=== PATIENT | female | born 1950 | race Caucasian/White ===

== ENCOUNTER 2021-01-01 12:45 | Outpatient (REF) | payer MEDICARE, SELFPAY ==
[2021-01-01 14:06] LABS: MANUAL DIFF FLAG NO
[2021-01-01 14:11] LABS: Glucose Urine UA NEG (NEG); Leukocyte Esterase Urine NEG (NEG); Nitrite Urine NEG (NEG); PH 6.5 (5.0-8.0); Urine Blood NEG (NEG); Urine Ketones NEG (NEG); Urine Protein NEG (NEG-TRACE)
[2021-01-01 14:14] LABS: Appearance Urine CLEAR; Color Urine YELLOW
[2021-01-01 14:15] LABS: Basophils Percent Auto 0.8 % (0-2); Eosinophils Absolute Auto 0.1 X10*3/uL (0.0-0.4); Eosinophils Percent Auto 2.5 % (0-4); Hematocrit 40.6 % (37-47); Hemoglobin 12.9 g/dl (12.0-16.0); Lymphocytes Absolute Auto 1.8 X10*3/uL (1.2-4.9); Lymphocytes Percent Auto 35.9 % (20-40); Mean Corpuscular HGB Conc 31.8 g/dl (31.0-35.0); Mean Corpuscular Hemoglobin 30.4 pg (27.0-33.0); Mean Corpuscular Volume 95.5 fL (80-98); Mean Platelet Volume 9.9 fL (9.4-12.3); Monocytes Absolute Auto 0.3 X10*3/uL (0.1-1.2); Monocytes Percent Auto 5.3 % (2-11); Neutrophils Absolute Auto 2.8 X10*3/uL (2.0-8.3); Neutrophils Percent Auto 55.5 % (45-73); Platelet Count 221 X10*3/uL (160-400); Red Blood Count 4.25 X10*6/uL (4.20-5.50); Red Cell Distribution Width 14.3 % (11.0-16.0); White Blood Count 5.1 X10*3/uL (4.8-10.8)
[2021-01-01 14:54] LABS: Alanine Aminotransferase 11 U/L (0-31); Albumin Level 4.1 g/dL (3.5-5.0); Alkaline Phosphatase 96 U/L (39-117); Anion Gap 12 (12-20); Aspartate Amino Transferase 22 U/L (5-31); Bilirubin Total 0.3 mg/dL (0.0-1.0); Blood Urea Nitrogen 16 mg/dL (9-16); Calcium 8.6 mg/dL (8.4-10.2); Carbon Dioxide 31 mmol/L (22-29); Chloride 99 mmol/L (96-108); Cholesterol 172 mg/dL; Estimated Glomerular Filt Rate > 60; Glucose Fasting 87 mg/dL (60-99); HDL Cholesterol 76 mg/dL; LDL Cholesterol Calculated 75 mg/dl; Potassium 4.6 mmol/L (3.3-5.1); Sodium 137 mmol/L (135-145); Total Protein 6.9 g/dL (6.5-8.0); Triglycerides 107 mg/dL
[2021-01-01 14:55] LABS: Creatinine Urine 37.43 mg/dL; Microalbumin Urine < 5.0 mg/L
[2021-01-01 16:28] LABS: Estimated Average Glucose 105 mg/dL; Hemoglobin A1c % 5.3 %
== END 2021-01-01 12:46 | disposition home or self-care (01) ==
LOC: HO.HMGCLDS 12:45
PROVIDERS: PCP Internal Medicine; Visit Provider Internal Medicine
DX: R73.03 Prediabetes (principal); I10 Essential (primary) hypertension; C34.90 Malignant neoplasm of unspecified part of unspecified bronchus or lung
CPT/HCPCS: 36415; 80053; 80061; 81003; 82043; 83036; 85025

== ENCOUNTER 2023-06-30 11:34 | Outpatient (REF) | payer MEDICARE, SELFPAY ==
[2023-06-30 11:37] LABS: MANUAL DIFF FLAG NO
[2023-06-30 11:54] LABS: Basophils Absolute Auto 0.1 X10*3/uL (0.0-0.2); Basophils Percent Auto 0.9 % (0-2); Eosinophils Absolute Auto 0.2 X10*3/uL (0.0-0.4); Eosinophils Percent Auto 3.5 % (0-4); Hematocrit 41.5 % (37.0-47.0); Hemoglobin 12.9 g/dl (12.0-16.0); Imm Gran Abs Auto 0.01 X10*3/uL (0.00-0.03); Imm Gran Pct Auto 0.2 % (0.0-0.4); Lymphocytes Absolute Auto 2.4 X10*3/uL (1.2-4.9); Mean Corpuscular HGB Conc 31.1 g/dl (31.0-35.0); Mean Corpuscular Hemoglobin 30.4 pg (27.0-33.0); Mean Corpuscular Volume 97.9 fL (80.0-98.0); Mean Platelet Volume 9.7 fL (9.4-12.3); Monocytes Absolute Auto 0.4 X10*3/uL (0.1-1.2); Neutrophils Absolute Auto 2.3 x10*3/uL (2.0-8.3); Neutrophils Percent Auto 43.4 % (45-73); Platelet Count 234 X10*3/uL (160-400); Red Blood Count 4.24 X10*6/uL (4.20-5.50); Red Cell Distribution Width 14.5 % (11.0-16.0); White Blood Count 5.4 X10*3/uL (4.8-10.8)
[2023-06-30 11:58] LABS: Appearance Urine Clear; Color Urine Yellow; Glucose Urine UA Negative (Negative); Leukocyte Esterase Urine Negative (Negative); Nitrite Urine Negative (Negative); PH 5.5 (5.0-9.0); Specific Gravity - Urine 1.015 (1.005-1.025); Urine Blood Negative (Negative); Urine Ketones Negative (Negative); Urine Protein Negative (Neg-Trace)
[2023-06-30 12:03] LABS: Bacteria Urine 1+ (None Seen); Hyaline Casts Urine 0-2 /LPF (0-2); RBC Urine 0-2 /HPF (0-2); WBC Urine 0-5 /HPF (0-5)
[2023-06-30 13:40] LABS: Estimated Average Glucose 100 mg/dL; Hemoglobin A1c % 5.1 %
[2023-06-30 13:50] LABS: Creatinine Urine 48.14 mg/dL; Microalbum/Creatinine Ratio Ur 10.3 ug/mg cr
[2023-06-30 15:07] LABS: Alanine Aminotransferase 13 U/L (0-31); Albumin Level 4.1 g/dL (3.5-5.0); Alkaline Phosphatase 88 U/L (39-117); Anion Gap 16 (12-20); Aspartate Amino Transferase 22 U/L (5-31); Bilirubin Total 0.4 mg/dL (0.0-1.0); Blood Urea Nitrogen 18 mg/dL (9-16); Calcium 9.5 mg/dL (8.4-10.2); Carbon Dioxide 25 mmol/L (22-29); Chloride 104 mmol/L (96-108); Cholesterol 175 mg/dL; Estimated Glomerular Filt Rate > 60; Glucose Fasting 100 mg/dL (60-99); HDL Cholesterol 81 mg/dL; LDL Cholesterol Calculated 69 mg/dl; Potassium 4.4 mmol/L (3.3-5.1); Sodium 141 mmol/L (135-145); Total Protein 6.9 g/dL (6.5-8.0); Triglycerides 126 mg/dL
== END 2023-06-30 11:35 | disposition home or self-care (01) ==
LOC: HO.LNP 11:34
PROVIDERS: Visit Provider Internal Medicine
DX: I10 Essential (primary) hypertension (principal); R73.09 Other abnormal glucose
CPT/HCPCS: 80053; 80061; 81001; 82043; 83036; 85025

== ENCOUNTER 2023-10-23 13:17 | Outpatient (REF) | payer MEDICARE, SELFPAY ==
[2023-10-23 16:12] LABS: MANUAL DIFF FLAG NO
[2023-10-23 16:25] LABS: Basophils Percent Auto 0.7 % (0-2); Eosinophils Absolute Auto 0.1 X10*3/uL (0.0-0.4); Eosinophils Percent Auto 1.5 % (0-4); Hemoglobin 13.1 g/dl (12.0-16.0); Imm Gran Abs Auto 0.02 X10*3/uL (0.00-0.03); Imm Gran Pct Auto 0.4 % (0.0-0.4); Lymphocytes Absolute Auto 1.7 X10*3/uL (1.2-4.9); Lymphocytes Percent Auto 30.1 % (20-40); Mean Corpuscular HGB Conc 31.2 g/dl (31.0-35.0); Mean Corpuscular Hemoglobin 30.3 pg (27.0-33.0); Mean Platelet Volume 9.2 fL (9.4-12.3); Monocytes Absolute Auto 0.3 X10*3/uL (0.1-1.2); Neutrophils Absolute Auto 3.4 x10*3/uL (2.0-8.3); Neutrophils Percent Auto 61.3 % (45-73); Platelet Count 274 X10*3/uL (160-400); Red Blood Count 4.33 X10*6/uL (4.20-5.50); Red Cell Distribution Width 14.6 % (11.0-16.0); White Blood Count 5.5 X10*3/uL (4.8-10.8)
== END 2023-10-23 13:18 | disposition home or self-care (01) ==
LOC: HO.HMGCLDS 13:17
PROVIDERS: PCP Internal Medicine; Visit Provider Internal Medicine
DX: D72.820 Lymphocytosis (symptomatic) (principal)
CPT/HCPCS: 36415; 85025

== ENCOUNTER 2023-10-31 12:48 | Observation (INO) | payer OTHER, MEDICARE, SELFPAY ==
--- NOTE | ~2023-10-31 | CT_ITS ---
EXAMINATION: CT HEAD WITHOUT CONTRAST CLINICAL INFORMATION: COMPARISON: None available. TECHNIQUE: Contiguous axial imaging was performed from the skull base to vertex without intravenous administration of contrast. This CT examination was performed using dose optimization techniques as appropriate, variously including the following: *Automated exposure control *Adjustment of mA and/or kV according to patient size (this includes techniques or standardized protocols for targeted exams where dose is matched to indication/reason for exam; i.e. extremities or head) *Use of iterative reconstruction technique DLP: 605 mGy-cm FINDINGS: Allowing for differences in positioning, the previously identified small right parafalcine subdural hematoma measuring up to 0.3 cm in depth appears grossly unchanged. Previously seen, trace subarachnoid hemorrhagic products along the parasagittal aspect of the right frontal lobe appear grossly similar to possibly slightly improved. No intraparenchymal hemorrhage, large infarction, or mass lesion is seen. The ventricles appear unremarkable in size and configuration. No demonstrated into parenchyma hemorrhagic products. No evidence of edematous territorial infarction. Richard-white matter differentiation is preserved. A few foci of hypoattenuation in the periventricular and deep white matter are consistent with mild microangiopathy. The ventricles are normal in morphology and size. No evidence for obstructive hydrocephalus. No abnormal mass effect or midline shift. Small laceration and subgaleal hematoma along the left posterior skull, measuring up to 0.6 cm in depth appears similar. No associated acute osseous finding. Mild mucosal thickening of the paranasal sinuses. The mastoid air cells and middle ear cavities are clear. Bilateral lens extractions. CT/CT head/brain wo IV con IMPRESSION: Allowing for differences in positioning, the small right parafalcine subdural hematoma measuring up to 0.3 cm in depth identified on CT scan from one day prior appears grossly unchanged. Previously seen, trace subarachnoid hemorrhagic products along the parasagittal aspect of the right frontal lobe appear grossly similar to possibly slightly improved.
--- NOTE | ~2023-10-31 | XR_ITS ---
EXAMINATION: XR SHOULDER, LEFT CLINICAL INFORMATION: Status post fall COMPARISON: January 02, 2020 TECHNIQUE: Three views of the left shoulder. FINDINGS: Patient is status post previous left lung surgery. There has been progression in severe degenerative joint disease of the left shoulder. There is loss of the glenohumeral joint space with marginal sclerosis and spurring. There is some flattening of the humeral head with subchondral cyst formation. There is capsular calcification is seen. No definite acute fracture or dislocation is seen. There is some superior migration of the humeral head suggestive of rotator cuff disease. No widening of the coracoclavicular space is seen. XR/XR shoulder LT min 2V IMPRESSION: Progression in severe degenerative change of the left shoulder without definite acute fracture appreciated.
--- NOTE | ~2023-10-31 | CT_ITS ---
EXAMINATION: CT HEAD WITHOUT CONTRAST CLINICAL INFORMATION: Fall. Head strike. COMPARISON: None available. TECHNIQUE: Contiguous axial imaging was performed from the skull base to vertex without intravenous administration of contrast. This CT examination was performed using dose optimization techniques as appropriate, variously including the following: *Automated exposure control. *Adjustment of mA and/or kV according to patient size (this includes techniques or standardized protocols for targeted exams where dose is matched to indication/reason for exam; i.e. extremities or head). *Use of iterative reconstruction technique. DLP: 675 mGy-cm FINDINGS: There is a small right parafalcine subdural hematoma measuring up to 0.3 cm in depth. There is also trace subarachnoid hemorrhagic products along the parasagittal aspect of the right frontal lobe. No demonstrated into parenchyma hemorrhagic products. No evidence of edematous territorial infarction. Richard-white matter differentiation is preserved. A few foci of hypoattenuation in the periventricular and deep white matter are consistent with mild microangiopathy. The ventricles are normal in morphology and size. No evidence for obstructive hydrocephalus. No abnormal mass effect or midline shift. Small laceration and subgaleal hematoma along the posterior skull, measuring up to 0.6 cm in depth. No associated acute osseous abnormalities. Mild mucosal thickening of the paranasal sinuses. The mastoid air cells and middle ear cavities are clear. Bilateral lens extractions. CT/CT head/brain wo IV con IMPRESSION: 1. Small right parafalcine subdural hematoma. Trace subarachnoid hemorrhagic products along the parasagittal aspect of the right frontal lobe. 2. Small posterior scalp laceration and subgaleal hematoma. No associated osseous abnormalities. This critical result was discussed with Dr. Hall at 15:54 on 10/31/2023 and it was ascertained that the content and urgency of the report was understood at the time of direct communication.
--- NOTE | ~2023-10-31 | CT_ITS ---
EXAMINATION: CT CERVICAL SPINE WITHOUT CONTRAST CLINICAL INFORMATION: Neck pain, trauma. Fall, head strike. COMPARISON: None available. TECHNIQUE: Multiple helical unenhanced images were acquired through the cervical spine. Multiplanar computer reformatted images were acquired from the dataset in the sagittal and coronal plane. This CT examination was performed using dose optimization techniques as appropriate, variously including the following: *Automated exposure control *Adjustment of mA and/or kV according to patient size (this includes techniques or standardized protocols for targeted exams where dose is matched to indication/reason for exam; i.e. extremities or head) *Use of iterative reconstruction technique DLP: 276 mGy-cm FINDINGS: CT examination of the cervical spine shows no prevertebral soft tissue swelling. Vertebral body height and alignment are maintained. No acute fracture or subluxation is evident. The odontoid process, cervicothoracic and cervical medullary junctions are normal. There are no bone lesions. No cervical mass or adenopathy is evident. A small bleb is evident in the right apex. Multilevel degenerative changes are evident in the cervical spine, including advanced disc space narrowing at C3-4 and C4-5. There are 4 mm of degenerative retrolisthesis at C4-5. CT/CT cervical spine wo IV con IMPRESSION: 1. No acute cervical spine fracture or subluxation. 2. Advanced C3-4 and C4-5 degenerative disc disease. Fleischner guidelines were followed.
[2023-10-31 12:58] VITALS: BP 143/75; BP 150/78; PULSE 77; PULSE 86; RESP 16; TEMP 37.1; O2SAT 96; O2SAT 98; BMI 23.8
[2023-10-31 13:02] VITALS: BP 150/78; PULSE 79; RESP 16; TEMP 37.1
--- NOTE | 2023-10-31 13:27 | ED_ITS ---
HPI - Fall General Chief Complaint: Fall Stated Complaint: TRIP/FALL, HEAD LAC,+CCOLLAR,-LOC PER EMS Time Seen by Provider: 10/31/23 13:17 Source: patient Mode of arrival: EMS Limitations: no limitations History of Present Illness HPI Narrative: Patient is 73 years old not on any blood thinner was at work tripped and fell backwards hitting the wall and left parietal area no loss of consciousness no hip pain no other injuries patient not on any blood thinner came with laceration to the left side of the scalp Related Data Home Medications Medication Instructions Recorded Confirmed amlodipine 5 mg tablet 5 mg PO DAILY 10/31/23 10/31/23 azithromycin 250 mg tablet 250 mg PO DAILY 10/31/23 10/31/23 gabapentin 400 mg capsule 400 mg PO TID 10/31/23 10/31/23 omeprazole 20 mg capsule,delayed 20 mg PO BID@0630,1630 10/31/23 10/31/23 release paroxetine HCl 40 mg tablet 40 mg PO DAILY 10/31/23 10/31/23 ropinirole 1 mg tablet 1 mg PO BEDTIME 10/31/23 10/31/23 Allergies Allergy/AdvReac Type Severity Reaction Status Date / Time No Known Allergies Allergy Unverified 08/13/20 16:59 [No Known Allergies*] Review of Systems 2 Review of Systems: Yes all other systems are reviewed and are negative [facility] Social History Social History Patient Tobacco Use Status: Never used Tobacco Smoked in Last 30 Days: No Use of substances other than those prescribed or required for medical reasons: No Advance Directives: Yes Advance Directives Information Provided: Yes Advance Directives on File: No Nutrition Risks: No Nutritional Risk Physical Exam 2 Vital Signs: Vital Signs: Last Vital Signs Temp 97.8 F 10/31/23 19:30 Pulse 77 10/31/23 19:30 Resp 18 10/31/23 19:30 BP 117/67 10/31/23 19:30 Pulse Ox 97 10/31/23 19:30 O2 Del Method Room Air 10/31/23 19:30 BMI result Body Mass Index 23.8 Appearance: Alert. Oriented X3. No acute distress. GCS 15 Eyes: PERRLA, No Nystagmus HEENT: Pharynx normal. Oral Mucosa moist, 2 small laceration left temporal area Neck: Normal inspection. Neck supple. CVS: Normal heart rate and rhythm. Pulses normal. Respiratory: No respiratory distress. Equal air entry bilateral, no wheezing/rales/rhonchi Abdomen: Soft and nontender. Bowel sounds are present, no mass palpable, no CVA tenderness Skin: Skin warm and dry. Normal skin color. Normal skin turgor. Extremities: No lower extremity edema. No calf tenderness pelvis stable soft tissue swelling left shoulder with good range of movement Neuro: Oriented X 3. No motor deficit. No sensory deficit.No cerebellar signs , cranial nerves II-XII intact HEENT: Head images: 1. Superficial laceration 3 cm long 2. Superficial laceration 1 cm long Medications Administered Discontinued Medications Generic Name Dose Route Start Last Admin Trade Name Phongq PRN Reason Stop Dose Admin Acetaminophen 650 mg 10/31/23 15:09 10/31/23 15:13 Acetaminophen 325 Mg Tablet PO 10/31/23 15:10 650 mg ONCE ONE Administration Oxycodone HCl 5 mg 10/31/23 17:59 10/31/23 18:15 Oxycodone Hcl Immed Release 5 Mg Tablet PO 10/31/23 18:00 5 mg ONCE ONE Administration Procedures Laceration Laceration 1: Site: scalp Side (If applicable): left Size (cm): 3 Description: linear Depth: simple, single layer Local Anesthetic: lidocaine 1% Amount of anesthesia used (mL): 2 Skin layer closed with: nylon Size (cm): 5-0 Number of sutures: 5 Technique: simple, interrupted Laceration 2: Site: face Side (If applicable): left Size (cm): 1 Description: linear Depth: simple, single layer Local Anesthetic: lidocaine 1% Amount of anesthesia used (mL): 1 Skin layer closed with: nylon Size (cm): 5-0 Number of sutures: 2 Technique: simple, interrupted Medical Decision Making Medical Decision Making MDM Narrative: Patient status post mechanical fall not on any blood thinner CT scan showed small subdural hematoma and subarachnoid bleed case discussed Dr. Avendano neurologist patient does need to be transferred we can keep the patient in the hospital repeat CT scan in am Differential Diagnosis Differential Diagnoses: The differential diagnosis associated with the presentation includes ICH/SDH/SAH/cervical fracture Admission/Observation Consideration of admission/observation: Escalation of care including admission/observation considered Consult Healthcare Provider Management of the patient was discussed with: Hospitalist Lab Data [facility] Lab Attestation statement: I reviewed the patient's lab results. 10/31/23 17:01 10/31/23 17:01 Labs: Lab Results 10/31/23 Range/Units 17:01 WBC 6.3 (4.8-10.8) X10*3/uL RBC 4.09 L (4.20-5.50) X10*6/uL Hgb 12.5 (12.0-16.0) g/dl Hct 39.1 (37.0-47.0) % MCV 95.6 (80.0-98.0) fL MCH 30.6 (27.0-33.0) pg MCHC 32.0 (31.0-35.0) g/dl RDW 14.0 (11.0-16.0) % Plt Count 227 (160-400) X10*3/uL MPV 8.7 L (9.4-12.3) fL Immature Gran % (Auto) 0.6 H (0.0-0.4) % Neut % (Auto) 63.4 (45-73) % Lymph % (Auto) 27.8 (20-40) % [place] % (Auto) 6.7 (2-11) % Eos % (Auto) 1.0 (0-4) % Baso % (Auto) 0.5 (0-2) % Lymph # (Auto) 1.8 (1.2-4.9) X10*3/uL [place] # (Auto) 0.4 (0.1-1.2) X10*3/uL Eos # (Auto) 0.1 (0.0-0.4) X10*3/uL Baso # (Auto) 0.0 (0.0-0.2) X10*3/uL Abs Immat Gran (auto) 0.04 H (0.00-0.03) X10*3/uL Absolute Neuts (auto) 4.0 (2.0-8.3) x10*3/uL Absolute Nucleated RBC 0.000 (0.0-0.012) X10*3/uL Nucleated RBC % (auto) 0.0 (0.0-0.2) /100WBC PT 11.1 (11.1-13.3) SEC INR 0.9 (0.9-1.1) Sodium 142 (135-145) mmol/L Potassium 4.0 (3.3-5.1) mmol/L Chloride 106 (96-108) mmol/L Carbon Dioxide 27 (22-29) mmol/L Anion Gap 13 (12-20) BUN 15 (9-16) mg/dL Creatinine 0.60 (0.5-1.4) mg/dL Estim Creat Clear Calc 71.0 Estimated GFR > 60 Random Glucose 90 (60-115) mg/dL Calcium 9.3 (8.4-10.2) mg/dL Total Bilirubin 0.3 (0.0-1.0) mg/dL AST 17 (5-31) U/L ALT 11 (0-31) U/L Alkaline Phosphatase 103 (39-117) U/L Total Protein 7.0 (6.5-8.0) g/dL Albumin 3.8 (3.5-5.0) g/dL Independent Interpretation I performed an independent interpretation of an: EKG and CT Scan Interpretation: Normal sinus rhythm heart rate 68 beats per minute right bundle-branch block no acute ST-T change and no acute ischemia Radiology Impression Discussion of test interpretation with radiology: I have reviewed the radiologist's reading. Radiologist Impression: CT/CT head/brain wo IV con IMPRESSION: 1. Small right parafalcine subdural hematoma. Trace subarachnoid hemorrhagic products along the parasagittal aspect of the right frontal lobe. 2. Small posterior scalp laceration and subgaleal hematoma. No associated osseous abnormalities. This critical result was discussed with Dr. Hall at 15:54 on 10/31/2023 and it was ascertained that the content and urgency of the report was understood at the time of direct communication. Critical Care Time Critical Care Time Critical Care Time: Yes Total Critical Care Time: 50 Attestation: The patient was critically ill with a high probability of imminent or life threatening deterioration. I spent greater than 60 minutes of discontinuous time evaluating the patient,delivering critical care at the bedside, discussing and evaluating pertinent data with consultants. Critical care time does not include time spent performing separately billable procedures or teaching. Total time spent performing critical care was 50 minutes. Discharge Plan Discharge Clinical Impression: Acute subdural hematoma, Subarachnoid bleed, Fall Patient Disposition: Admitted As Inpatient
[2023-10-31 14:49] VITALS: BP 129/78; PULSE 78; RESP 16; O2SAT 96
--- NOTE | 2023-10-31 14:50 | PC.NURSE ---
vss and up to date at this time. pt c/o 07/06 headache at this time - requesting medications. will notify provider. pt awaiting results from CT at this time. respirations even and unlabored. no sob/wob noted. c-collar in place. call fuller place within reach.
[2023-10-31] MEDS: Acetaminophen 325 MG TABLET 650 MG PO (15:13)
--- NOTE | 2023-10-31 15:13 | PC.NURSE ---
medication administered per provider order. will reassess pain level.
--- NOTE | 2023-10-31 15:51 | PC.NURSE ---
Provider took collar off of patient and patient was noted to be incontinent of urine at this time. Patient able to stand without assistance and denies dizziness. Clean bedding provided to patient, plan for patient to receive edil to head wound.
--- NOTE | 2023-10-31 16:49 | PHA.MEDREC ---
Pharmacy Consult ? Medication Reconciliation Pharmacy has completed the medication reconciliation. Patient reported medications. Gemma Goodman, IbanD
--- NOTE | 2023-10-31 16:56 | P.HPHOSP_ITS ---
History of Present Illness Date of Service: 10/31/23 Chief Complaint: Fall and head injury 73 year old female with HTN, neuropathy, gerd, mood desorder who presented with fall with head injury. 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 There is was no LOC, no dizziness. she does have some headache. Head CT show 1. Small right parafalcine subdural hematoma. Trace subarachnoid hemorrhagic products along the parasagittal aspect of the right frontal lobe. 2. Small posterior scalp laceration and subgaleal hematoma. No associated osseous abnormalities. Dr. Freitas discussed with Dr. Avendano who recommens observing and repeating head CT in the morning. Review of Systems 2 Review of Systems: +headache, no dizziness, no chest pain, no sob.. Yes all other systems are reviewed and are negative PMFSH Social History Patient Tobacco Use Status: Never used Tobacco Smoked in Last 30 Days: No Use of substances other than those prescribed or required for medical reasons: No Advance Directives: Yes Advance Directives on File: Yes Advance Directives Date on File: 11/01/23 Nutrition Risks: No Nutritional Risk service: No Meds Allergies Allergy/AdvReac Type Severity Reaction Status Date / Time No Known Allergies Allergy Unverified 08/13/20 16:59 [No Known Allergies*] Home Medications Medication Instructions Recorded Confirmed Last Taken Type amlodipine 5 mg tablet 5 mg PO DAILY 10/31/23 10/31/23 10/31/23 History azithromycin 250 mg tablet 250 mg PO DAILY 10/31/23 10/31/23 10/31/23 History gabapentin 400 mg capsule 400 mg PO TID 10/31/23 10/31/23 10/31/23 History omeprazole 20 mg capsule,delayed 20 mg PO BID@0630,1630 10/31/23 10/31/23 10/31/23 History release paroxetine HCl 40 mg tablet 40 mg PO DAILY 10/31/23 10/31/23 10/31/23 History ropinirole 1 mg tablet 1 mg PO BEDTIME 10/31/23 10/31/23 10/30/23 History Physical Exam 2 Vital Signs and Narrative: Vital Signs: Last Vital Signs Temp 98.7 F 10/31/23 13:02 Pulse 78 10/31/23 14:49 Resp 16 10/31/23 14:49 BP 129/78 10/31/23 14:49 Pulse Ox 96 10/31/23 14:49 O2 Del Method Room Air 10/31/23 14:49 BMI result Body Mass Index 23.8 Const: Other: Constitutional: Alert, in no distress, Mental Status: Oriented to person, place and time. Eyes: Pupils are equal, round and reactive to light. Ear, Nose and Throat: Oropharynx clear, mucous membranes moist. Ears and nose without eformities. Respiratory: Clear to auscultation. No wheezing, rales or rhonchi. Cardiovascular: S1 S2 regular. No murmurs, rubs or gallops. Gastrointestinal: Abdomen soft, non-tender, non-distended. Normal bowel sounds.? Neurologic: Cranial nerves II-XII grossly intact. No focal neurological deficits. Moves all extremities spontaneously.? Skin: No rashes or lesions.? Musculoskeletal: No cyanosis or clubbing. Psychiatric: Normal mood and affect? Results Labs 10/31/23 17:01 10/31/23 17:01 Imaging Radiologist's Impressions: Impressions Cervical Spine CT 10/31/23 14:06 IMPRESSION: 1. No acute cervical spine fracture or subluxation. 2. Advanced C3-4 and C4-5 degenerative disc disease. Fleischner guidelines were followed. Head CT 10/31/23 14:06 IMPRESSION: 1. Small right parafalcine subdural hematoma. Trace subarachnoid hemorrhagic products along the parasagittal aspect of the right frontal lobe. 2. Small posterior scalp laceration and subgaleal hematoma. No associated osseous abnormalities. This critical result was discussed with Dr. Hall at 15:54 on 10/31/2023 and it was ascertained that the content and urgency of the report was understood at the time of direct communication. Assessment and Plan (1) Fall: Status: Acute (2) Subarachnoid bleed: Status: Acute (3) Acute subdural hematoma: Status: Acute Plan 73/F with mechanical fall resulting in small Small right parafalcine subdural hematoma. Trace subarachnoid hemorrhagic products along the parasagittal aspect of the right frontal lobe. plan: Observe overnight, repeat CT head in the morning, avoid anticoagulant and antiplatlets, Neuro eval in the morning. Neuro check x 8 hrs consider PT eval. Quality Stroke Does the patient have a stroke diagnosis?: No VTE Prior VTE?: No VTE Risk Level:: Medical - low VTE Device Contraindication: N/A - Device Ordered VTE Drug Contraindication: Treatment Not Tolerated
[2023-10-31 17:11] LABS: MANUAL DIFF FLAG NO
[2023-10-31 17:12] LABS: Basophils Percent Auto 0.5 % (0-2); Eosinophils Absolute Auto 0.1 X10*3/uL (0.0-0.4); Hematocrit 39.1 % (37.0-47.0); Hemoglobin 12.5 g/dl (12.0-16.0); Imm Gran Abs Auto 0.04 X10*3/uL (0.00-0.03); Imm Gran Pct Auto 0.6 % (0.0-0.4); Lymphocytes Absolute Auto 1.8 X10*3/uL (1.2-4.9); Lymphocytes Percent Auto 27.8 % (20-40); Mean Corpuscular Hemoglobin 30.6 pg (27.0-33.0); Mean Corpuscular Volume 95.6 fL (80.0-98.0); Mean Platelet Volume 8.7 fL (9.4-12.3); Monocytes Absolute Auto 0.4 X10*3/uL (0.1-1.2); Monocytes Percent Auto 6.7 % (2-11); Neutrophils Percent Auto 63.4 % (45-73); Platelet Count 227 X10*3/uL (160-400); Red Blood Count 4.09 X10*6/uL (4.20-5.50); White Blood Count 6.3 X10*3/uL (4.8-10.8)
--- NOTE | 2023-10-31 17:14 | ECG_ITS ---
Test Reason : FALL Blood Pressure : / mmHG Vent. Rate : 068 BPM Atrial Rate : 068 BPM P-R Int : 150 ms QRS Dur : 134 ms QT Int : 424 ms P-R-T Axes : 079 053 036 degrees QTc Int : 450 ms Normal sinus rhythm Right bundle branch block Abnormal ECG When compared with ECG of 05-MAR-2019 11:21, No significant change was found Referred By: Candido Carroll Electronically Signed By:BRIONNA LONG
[2023-10-31 17:22] LABS: INTERNATIONAL NORM RATIO 0.9 (0.9-1.1); Prothrombin Time 11.1 SEC (11.1-13.3)
[2023-10-31 17:33] LABS: Alanine Aminotransferase 11 U/L (0-31); Albumin Level 3.8 g/dL (3.5-5.0); Alkaline Phosphatase 103 U/L (39-117); Anion Gap 13 (12-20); Aspartate Amino Transferase 17 U/L (5-31); Bilirubin Total 0.3 mg/dL (0.0-1.0); Blood Urea Nitrogen 15 mg/dL (9-16); Calcium 9.3 mg/dL (8.4-10.2); Carbon Dioxide 27 mmol/L (22-29); Chloride 106 mmol/L (96-108); Estimated Glomerular Filt Rate > 60; Glucose Random 90 mg/dL (60-115); Sodium 142 mmol/L (135-145)
[2023-10-31] MEDS: oxyCODONE HCl Immed Release 5 MG TABLET PO ×2 (18:15→23:32)
[2023-10-31 18:18] VITALS: BP 158/82; PULSE 74; RESP 16; O2SAT 96
--- NOTE | 2023-10-31 18:23 | PC.NURSE ---
vss and up to date at this time. nsr on the ekg monitor. pt c/o 07/06 headache at this time. pt medicated per provider order. will reassess. pt able to ambulate w/ steady gait w/o any assistive devices/without any difficulties. no sob/wob noted. respirations remain even and unlabored. call fuller placed within reach.
[2023-10-31 19:30] VITALS: BP 117/67; PULSE 77; RESP 18; TEMP 36.6; O2SAT 97
--- NOTE | 2023-10-31 19:32 | MHC.EDTECH ---
This tech assumed care of patient at 1900, Hourly rounds and vitas completed. Belonging list completed for admission and copy placed in chart. Call fuller within reach
--- NOTE | 2023-10-31 19:45 | MHC.EDTECH ---
This tech took away dinner tray,patient ate 100% of dinner and drank 240CC of fluid .
[2023-10-31 22:16] VITALS: BP 137/70; PULSE 70; RESP 18; TEMP 36.9; O2SAT 98
--- NOTE | 2023-10-31 22:17 | MHC.EDTECH ---
Hourly rounds and vitals completed,patient stated she was in pain,this tech made Joanna RN aware
[2023-10-31] MEDS: Gabapentin 400 MG CAPSULE PO (22:54)
[2023-10-31] MEDS: rOPINIRole HCL 1 MG TABLET PO (22:54)
--- NOTE | 2023-10-31 23:03 | PC.NURSE ---
Pt tearful and emotional. Reports being upset and wanting to go home as pt was under the impression she would have a room available by this time. Pt reports headache and would like oxycodone as Tylenol does not help. [place] text sent to Dr. Polanco requesting Oxycodone. Pt ambulatory to the restroom with steady gait. Pending bed assignment. Encouragement provided. Monitoring is ongoing.
[2023-11-01 04:26] VITALS: BP 112/63; PULSE 74; RESP 16; TEMP 36.8; O2SAT 96
--- NOTE | 2023-11-01 04:26 | MHC.EDTECH ---
Hourly rounds and vitals completed
[2023-11-01] MEDS: Omeprazole 20 MG CAPSULE.DR PO (05:41)
--- NOTE | 2023-11-01 05:43 | PC.NURSE ---
Independent and ambulatory to the bathroom with steady gait.
[2023-11-01 06:45] VITALS: BP 137/72; PULSE 66; RESP 16; TEMP 36.4; O2SAT 96
[2023-11-01] MEDS: Gabapentin 400 MG CAPSULE PO (07:11)
[2023-11-01] MEDS: oxyCODONE HCl Immed Release 5 MG TABLET PO (07:11)
[2023-11-01] MEDS: PARoxetine HCL 40 MG TABLET PO (07:11)
[2023-11-01] MEDS: amLODIPine Besylate 5 MG TABLET PO (07:11)
[2023-11-01] MEDS: 0.9 % Sodium Chloride Flush 3 ML SYRINGE IVFLUSH (07:13)
--- NOTE | 2023-11-01 09:06 | MHC.CM.PN ---
PT REPORTS SHE LIVES WITH HER SON AND IS INDEPENDENT WITH CARE SHE DENIES USE OF DME OR HOME SERVICES SHE COMPLETED A NEW HCP TODAY NAMING HER SON, JAUN, AND SISTER, CAESAR, HER AGENTS PCP: [id number] PEPE OBSERVATION NOTICE DELIVERED DCP: HOME NO SERVICES VIA PRIVATE TRANSPORT
--- NOTE | 2023-11-01 11:10 | PM.NEUROCN ---
History of Present Illness Data of Consult Service Date: 11/01/23 Primary Care Provider: Dandre Martinez MD [facility] Reason for consult: Intracerebral hemorrhage 73 years old woman who had a mechanical fall hitting her head on the ground and sustaining laceration. She came to emergency room yesterday and was diagnosed with small intracerebral hemorrhage and was admitted. Now she was feeling better stating that headache was still there about 7/10 but otherwise she was feeling fine. There was no other symptom or seizure. Review of Systems Review of Systems: No recent cold or flu-like illness PMFSH Social History Social History Patient Tobacco Use Status: Never used Tobacco Smoked in Last 30 Days: No Use of substances other than those prescribed or required for medical reasons: No Advance Directives: Yes Advance Directives on File: Yes Advance Directives Date on File: 11/01/23 Nutrition Risks: No Nutritional Risk service: No Meds Allergies Allergy/AdvReac Type Severity Reaction Status Date / Time No Known Allergies Allergy Unverified 08/13/20 16:59 [No Known Allergies*] Active Medications: Current Medications Acetaminophen (Acetaminophen 325 Mg Tablet) 650 mg PO Q6H PRN PRN Reason: Pain, Mild (Pain Scale 1-3) Al Hydroxide/Mg Hydroxide (Magnesium Hydrox/Alum Hydrox 30 Ml Oral.Susp) 30 ml PO Q4H PRN PRN Reason: Heartburn/Nausea Amlodipine Besylate (Amlodipine Besylate 5 Mg Tablet) 5 mg PO DAILY [facility]; Protocol Last Admin: 11/01/23 07:11 Dose: 5 mg Gabapentin (Gabapentin 400 Mg Capsule) 400 mg PO TID [facility] Last Admin: 11/01/23 07:11 Dose: 400 mg Omeprazole (Omeprazole 20 Mg Capsule.Dr) 20 mg PO BID@0630,1630 [facility] Last Admin: 11/01/23 05:41 Dose: 20 mg Ondansetron HCl (Ondansetron Hcl 4 Mg/2 Ml Vial) 4 mg IVPUSH Q8H PRN PRN Reason: Nausea and Vomiting Oxycodone HCl (Oxycodone Hcl Immed Release 5 Mg Tablet) 5 mg PO Q6H PRN PRN Reason: Pain, Severe (Pain Scale 7-10) Last Admin: 11/01/23 07:11 Dose: 5 mg Paroxetine HCl (Paroxetine Hcl 40 Mg Tablet) 40 mg PO DAILY [facility] Last Admin: 11/01/23 07:11 Dose: 40 mg Ropinirole HCl (Ropinirole Hcl 1 Mg Tablet) 1 mg PO BEDTIME [facility] Last Admin: 10/31/23 22:54 Dose: 1 mg Sodium Chloride (0.9 % Sodium Chloride Flush 3 Ml Syringe) 3 ml IVFLUSH QSHIFT [facility] Last Admin: 11/01/23 07:13 Dose: 3 ml Home Medications Medication Instructions Recorded Confirmed Last Taken Type amlodipine 5 mg tablet 5 mg PO DAILY 10/31/23 10/31/23 10/31/23 History azithromycin 250 mg tablet 250 mg PO DAILY 10/31/23 10/31/23 10/31/23 History gabapentin 400 mg capsule 400 mg PO TID 10/31/23 10/31/23 10/31/23 History omeprazole 20 mg capsule,delayed 20 mg PO BID@0630,1630 10/31/23 10/31/23 10/31/23 History release paroxetine HCl 40 mg tablet 40 mg PO DAILY 10/31/23 10/31/23 10/31/23 History ropinirole 1 mg tablet 1 mg PO BEDTIME 10/31/23 10/31/23 10/30/23 History Physical Exam Vital Signs: Vital Signs: Last Vital Signs Temp 97.5 F 11/01/23 06:45 Pulse 66 11/01/23 06:45 Resp 16 11/01/23 06:45 BP 137/72 11/01/23 06:45 Pulse Ox 96 11/01/23 06:45 O2 Del Method Room Air 11/01/23 06:45 BMI result Body Mass Index 23.8 Neuro: Other: She is alert and awake with normal spontaneity of speech fluency comprehension and affect. Face is symmetrical. Visual vega are full. There is no obvious focal weakness or for arm or leg. Left shoulder is somewhat frozen limiting exam of left arm. Plantars are flexor. Speech is normal. Results Labs 10/31/23 17:01 10/31/23 17:01 Labs: Short CBC 10/31/23 Range/Units 17:01 WBC 6.3 (4.8-10.8) X10*3/uL Hgb 12.5 (12.0-16.0) g/dl Hct 39.1 (37.0-47.0) % Plt Count 227 (160-400) X10*3/uL BMP 10/31/23 17:01 Sodium 142 Potassium 4.0 Chloride 106 Carbon Dioxide 27 BUN 15 Creatinine 0.60 Calcium 9.3 Liver Function 10/31/23 Range/Units 17:01 Total Bilirubin 0.3 (0.0-1.0) mg/dL AST 17 (5-31) U/L ALT 11 (0-31) U/L Alkaline Phosphatase 103 (39-117) U/L Albumin 3.8 (3.5-5.0) g/dL Head CT from yesterday and today were reviewed. The might be small para fell sign intracranial hemorrhage. Assessment and Plan (1) Acute subdural hematoma: Status: Acute 73 years old woman with traumatic small subdural hemorrhage. She had moderate headache. At this time she was probably back to baseline though having some headache. No further intervention is recommended this time and if otherwise okay, he could be discharged with common sense measures to avoid any further falls and p.r.n. Tylenol for headache control (2) Subarachnoid bleed: Status: Acute Procedures Date of Service Date of Service: 11/01/23
[2023-11-01 11:14] VITALS: BP 135/71; PULSE 75; RESP 16; TEMP 37.1; O2SAT 95
--- NOTE | 2023-11-01 12:16 | MHC.CM.PN ---
Patient has been medically cleared for dc to home today, self care.
--- NOTE | 2023-11-08 13:07 | PM.DS ---
DS: Providers Provider Date of Service: 11/01/23 Date of admission: 10/31/23 17:05 Primary care physician: Dandre Martinez MD Consults: 10/31/23 17:05 Consult to Neurology Routine Consulting Provider: [facility] Reason for consultation: subdural and subarachnoid hemorrhage Has provider been notified: No DS: Diagnosis Discharge Diagnosis (1) Fall: Status: Acute (2) Subarachnoid bleed: Status: Acute (3) Acute subdural hematoma: Status: Acute DS: Summary Hospital Course Hospital Course: 73 year old female with HTN, neuropathy, gerd, mood desorder who presented with fall with head injury. 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 There is was no LOC, no dizziness. she does have some headache. Head CT show 1. Small right parafalcine subdural hematoma. Trace subarachnoid hemorrhagic products along the parasagittal aspect of the right frontal lobe. 2. Small posterior scalp laceration and subgaleal hematoma. No associated osseous abnormalities. Dr. Freitas discussed with Dr. Avendano who recommens observing and repeating head CT in the morning. Hospital course: Patient had a mechanical fall hith her head and had a Trace subarachnoid hemorrhage and a Small right parafalcine subdural hematoma. She was observed overnight without any neurological complication and CT was repeated the next day and showed stable finding and therefore discharge home Time Attestation Discharge coordination time: Greater than 30 minutes Quality: Safe Use of Opioids Does Pt have an Active Cancer Diagnosis on the Problem List?: No Quality: Stroke Does the patient have a stroke diagnosis?: No Physical Exam Vital Signs: Vital Signs: Last Vital Signs Temp 98.7 F 11/01/23 11:14 Pulse 75 11/01/23 11:14 Resp 16 11/01/23 11:14 BP 135/71 11/01/23 11:14 Pulse Ox 95 11/01/23 11:14 O2 Del Method Room Air 11/01/23 11:14 BMI result Body Mass Index 23.8 General: AO X 3, no acute distress Resp: CTA bilateral CVS: S1,S2,RRR GI: +BS, NT, no distention Skin: No rash Neuro: motor grossly intact Psych: appropriate affect Discharge Plan Discharge Anticipated Discharge Date/Time: 11/01/23 11:58 Patient Disposition: Home, Self-Care Discharge Diagnosis: Fall, subdural hemorrhage, subarachnoid hemorrhage Referrals: Dandre Martinez MD [Primary Care Provider] - 1 Week Discharge Medications: New acetaminophen 325 mg Tablet 650 mg PO Q6H PRN (Reason: Pain, Mild (Pain Scale 1-3)) Qty: 30 0RF Rx Instructions: OTC tylenol ok Continued ropinirole 1 mg tablet 1 mg PO BEDTIME azithromycin 250 mg tablet 250 mg PO DAILY Rx Instructions: LAST DOSE ON 11/03/23 gabapentin 400 mg capsule 400 mg PO TID amlodipine 5 mg tablet 5 mg PO DAILY omeprazole 20 mg capsule,delayed release(DR/EC) 20 mg PO BID@0630,1630 paroxetine HCl 40 mg tablet 40 mg PO DAILY Discharge Orders: Discharge Order (Routine); Ordered 11/01/23 Ordered By: Yo Orourke Diet: Advance to usual diet Activity on Discharge: As tolerated Stand Alone Forms: Patient Portal Discharge page, Work/School Release Care Plan Goals: fall prevention Health Concerns: subarachnoid hemorrhage subdural hemorrhage fall Plan of Treatment: Take common sense measures to avoid fall and head trauma, it is expected that small brain bleed will resolved, avoid aspirin or other over the counter pain medicaiton (ie NSAID), check with the pharmacist. Tylenol is okay for headache return to the ED in 5 days for sutures to be removed. Assessment: see above Discharge Date/Time: 11/01/23 12:36
== END 2023-11-01 12:36 | disposition home or self-care (01) ==
LOC: HO.ED 13:36 → HO.EDOVER 17:14
PROVIDERS: Admitting Provider Internal Medicine; Emergency Provider Internal Medicine; PCP Internal Medicine; Visit Provider Internal Medicine
DX: S06.5XAA Traumatic subdural hemorrhage with loss of consciousness status unknown, initial encounter (principal); S06.2XAA Diffuse traumatic brain injury with loss of consciousness status unknown, initial encounter; S01.01XA Laceration without foreign body of scalp, initial encounter; W01.0XXA Fall on same level from slipping, tripping and stumbling without subsequent striking against object, initial encounter; Y93.89 Activity, other specified; Y92.219 Unspecified school as the place of occurrence of the external cause; Y99.0 Civilian activity done for income or pay; I10 Essential (primary) hypertension; G62.9 Polyneuropathy, unspecified; K21.9 Gastro-esophageal reflux disease without esophagitis
CPT/HCPCS: 12002; 12011; 36415; 70450; 72125; 73030; 80053; 85025; 85610; 93005; 97161; 99222; 99285

== ENCOUNTER 2023-10-31 17:05 | Outpatient (BNV) | payer OTHER, MEDICARE, SELFPAY | END 2023-10-31 17:14 | PROVIDERS: Admitting Provider Internal Medicine; Emergency Provider Internal Medicine; PCP Internal Medicine; Visit Provider Internal Medicine | DX: I45.10 Unspecified right bundle-branch block (principal); R94.31 Abnormal electrocardiogram [ECG] [EKG] | CPT/HCPCS: 93010 ==

== ENCOUNTER → 2023-10-31 17:05 | Outpatient (BNV) | payer OTHER, MEDICARE, SELFPAY | PROVIDERS: Admitting Provider Internal Medicine; Emergency Provider Internal Medicine; PCP Internal Medicine; Visit Provider Internal Medicine | DX: S06.5XAA Traumatic subdural hemorrhage with loss of consciousness status unknown, initial encounter (principal); W19.XXXA Unspecified fall, initial encounter | CPT/HCPCS: 99222; 99239 ==

== ENCOUNTER 2024-07-10 12:04 | Outpatient (REF) | payer OTHER, MEDICARE, SELFPAY ==
[2024-07-10 13:16] LABS: MANUAL DIFF FLAG NO
[2024-07-10 13:27] LABS: Appearance Urine Clear; Color Urine Yellow; Glucose Urine UA Negative (Negative); Leukocyte Esterase Urine Moderate (2+) (Negative); Nitrite Urine Negative (Negative); PH 5.5 (5.0-9.0); UMIC TRIGGER UACC YES; Urine Blood Trace (Negative); Urine Ketones Negative (Negative); Urine Protein Trace mg/dL (Neg-Trace)
[2024-07-10 13:33] LABS: Bacteria Urine None Seen (None Seen); Hyaline Casts Urine 0-2 /LPF (0-2); Squamous Epithelial Cell Urine 0-2 /HPF (0-2); UACC Culture Trigger YES; WBC Urine 21-50 /HPF (0-5)
[2024-07-10 13:42] LABS: Estimated Average Glucose 103 mg/dL; Hemoglobin A1c % 5.2 % (<6.0)
[2024-07-10 13:49] LABS: Basophils Absolute Auto 0.1 X10*3/uL (0.0-0.2); Basophils Percent Auto 1.2 % (0-2); Eosinophils Absolute Auto 0.1 X10*3/uL (0.0-0.4); Eosinophils Percent Auto 3.2 % (0-4); Hematocrit 37.6 % (37.0-47.0); Hemoglobin 12.2 g/dl (12.0-16.0); Lymphocytes Absolute Auto 1.6 X10*3/uL (1.2-4.9); Lymphocytes Percent Auto 36.5 % (20-40); Mean Corpuscular HGB Conc 32.4 g/dl (31.0-35.0); Mean Corpuscular Hemoglobin 31.1 pg (27.0-33.0); Mean Corpuscular Volume 95.9 fL (80.0-98.0); Mean Platelet Volume 8.9 fL (9.4-12.3); Monocytes Absolute Auto 0.3 X10*3/uL (0.1-1.2); Monocytes Percent Auto 7.9 % (2-11); Neutrophils Absolute Auto 2.2 x10*3/uL (2.0-8.3); Neutrophils Percent Auto 51.2 % (45-73); Platelet Count 235 X10*3/uL (160-400); Red Blood Count 3.92 X10*6/uL (4.20-5.50); Red Cell Distribution Width 14.5 % (11.0-16.0); White Blood Count 4.3 X10*3/uL (4.8-10.8)
[2024-07-10 14:08] LABS: Creatinine Urine 82.82 mg/dL; Microalbum/Creatinine Ratio Ur 74.8 ug/mg cr (<30)
[2024-07-10 14:09] LABS: Alanine Aminotransferase 11 U/L (0-31); Albumin Level 3.9 g/dL (3.5-5.0); Alkaline Phosphatase 90 U/L (39-117); Anion Gap 10 (12-20); Aspartate Amino Transferase 18 U/L (5-31); Bilirubin Total 0.2 mg/dL (0.0-1.0); Blood Urea Nitrogen 18 mg/dL (9-16); Calcium 9.2 mg/dL (8.4-10.2); Carbon Dioxide 30 mmol/L (22-29); Chloride 104 mmol/L (96-108); Cholesterol 191 mg/dL (<200); Estimated Glomerular Filt Rate > 60; Glucose Random 94 mg/dL (60-115); HDL Cholesterol 75 mg/dL (>40); LDL Cholesterol Calculated 98 mg/dL (<100); Potassium 4.2 mmol/L (3.3-5.1); Sodium 140 mmol/L (135-145); Total Protein 6.7 g/dL (6.5-8.0); Triglycerides 94 mg/dL (<150)
== END 2024-07-10 12:05 | disposition home or self-care (01) ==
LOC: HO.HMGCLDS 12:04
PROVIDERS: PCP Internal Medicine; Visit Provider Internal Medicine
DX: R73.09 Other abnormal glucose (principal); I10 Essential (primary) hypertension; D72.820 Lymphocytosis (symptomatic); R82.90 Unspecified abnormal findings in urine
CPT/HCPCS: 36415; 80053; 80061; 81001; 82043; 82570; 83036; 85025; 87086

== ENCOUNTER 2024-07-15 15:19 | Outpatient (REF) | payer MEDICARE, SELFPAY ==
[2024-07-15 15:38] LABS: Appearance Urine Clear; Color Urine Yellow; Glucose Urine UA Negative (Negative); Leukocyte Esterase Urine Moderate (2+) (Negative); Nitrite Urine Negative (Negative); Specific Gravity - Urine 1.025 (1.005-1.025); UMIC TRIGGER UA YES; Urine Blood Negative (Negative); Urine Ketones Trace mg/dL (Negative); Urine Protein Trace mg/dL (Neg-Trace)
[2024-07-15 16:13] LABS: Bacteria Urine None Seen (None Seen); Hyaline Casts Urine 0-2 /LPF (0-2); RBC Urine 0-2 /HPF (0-2); Squamous Epithelial Cell Urine 0-2 /HPF (0-2); WBC Urine 21-50 /HPF (0-5)
== END 2024-07-15 15:20 | disposition home or self-care (01) ==
LOC: HO.LNP 15:19
PROVIDERS: Visit Provider Internal Medicine
DX: R31.29 Other microscopic hematuria (principal)
CPT/HCPCS: 81001